=== PATIENT | male | born 1970 | race Caucasian/White ===

== ENCOUNTER 2023-01-11 12:36 | Outpatient (CLI) | payer BC, MEDICAID, SELFPAY ==
--- NOTE | 2023-01-11 12:48 | US_ITS ---
WS: [id number] THYROID ULTRASOUND HISTORY: NONTOXIC DIFFUSE GOITER COMPARISON: None available. Right lobe: 1.8 cm x 1.2 cm x 4.7 cm (w x ap x l). Volume: 5.3 cm3. Normal size and echotexture. No significant are dominant nodules are present. Left lobe: 1.6 cm x 1.3 cm x 4.2 cm (w x ap x l). Volume: 4.7 cm3. Normal size gland. Mixed complex cystic nodule in the inferior pole of the LEFT thyroid measures 8 x 6 x 7 mm. No significant increased vascularity. Cystic and solid components. No echogenic foci. Isthmus: 0.3 cm. US/US thyroid [id number] IMPRESSION: 1. 12 month ultrasound follow-up LEFT thyroid nodule. 2. Negative RIGHT thyroid.
== END 2023-01-11 12:37 | disposition home or self-care (01) ==
PROVIDERS: Family Provider Counselor Professional; Visit Provider Nurse Practitioner Family
DX: E04.0 Nontoxic diffuse goiter (principal); E04.1 Nontoxic single thyroid nodule
CPT/HCPCS: 76536